=== PATIENT | male | born 1970 | race Caucasian/White ===

== ENCOUNTER 2018-10-02 18:31 | Emergency (ER) | payer OTHER, SELFPAY ==
[2018-10-02 18:32] VITALS: BP 140/71; PULSE 104; RESP 18; TEMP 36.2; O2SAT 97; BMI 31.8
[2018-10-02] MEDS: HYDROcodone Bitartrate/Apap 5/325 Tablet PO (19:00)
--- NOTE | 2018-10-02 19:12 | RAD_ITS ---
STUDY: X-RAY - LEFT ANKLE REASON FOR EXAM: Male, 48 years old. Fall. Pain. TECHNIQUE: 3 view(s) of the ankle. COMPARISON: None. FINDINGS: There is a minimally displaced oblique fracture of the distal fibula originating at the ankle mortise. There is slight widening of the medial tibiotalar articulation. Normal visualized talus and calcaneus. The visualized subtalar, talonavicular, calcaneocuboid and tarsal articulations are normal. There is diffuse soft tissue swelling. RAD/Ankle min 3 Views IMPRESSION: Fracture of distal fibula with soft tissue swelling as described. Electronically Signed: Colt Baugh MD at 19:23 EST , Service support ,
--- NOTE | 2018-10-02 19:44 | ED.VISSUMM ---
- ER Visit Summary Date of Service: 10/02/18 Chief Complaint: Left ankle pain History of Present Illness: The patient is a 48 M who twisted his left ankle yesterday evening on the stairs. He complains of pain to his lateral left ankle. No other significant injuries or complaints. No weakness or numbness. Physical Examination: Afebrile and vital signs unremarkable. He has tenderness and swelling to his left lateral ankle. Foot is nontender. Proximal leg is nontender. He is neurovascular intact distally. Skin is intact. Test Results: X-rays show a left distal fibula fracture. Mortise appears normal. Emergency Department Course and Treatment: Patient treated with [place] while awaiting x-ray results. He was placed in an Ortho-Glass splint. Referred to Dr. Napoles for follow up. His prescription report showed no prescriptions. He was treated with Percocet. Rest, ice, elevate. Crutches and nonweightbearing. Return for any new or worsening issues. Treatment Plan: As above Disposition: Discharged Impression: 1. Left distal fibula fracture This note was generated with [employer] dictation software. It may contain incorrect words, spelling, and punctuation that were not noted in review of the chart prior to signing ED Disposition - Plan for ED Patient: Chief Complaint: Lower Extremity Injury Referrals: Alex Hickey MD [Primary Care Provider] -
--- NOTE | 2018-10-02 19:46 | ED.DEP ---
ED Disposition - Plan for ED Patient: Chief Complaint: Lower Extremity Injury Instructions: ED Fx Ankle Lateral Malleolus Prescriptions: Oxycodone HCl/Acetaminophen [Percocet 5/325] 1 tab PO Q6H PRN PRN 3 Days #12 tab PRN Reason: Pain Referrals: Tayo Napoles DO [STAFF PHYSICIAN] -
[2018-10-02 20:21] VITALS: BP 138/74; PULSE 72; RESP 16; O2SAT 97
== END 2018-10-02 20:22 | disposition home or self-care (01) ==
LOC: ED 19:03
PROVIDERS: Emergency Provider Emergency Medicine; Family Provider Family Medicine; PCP Family Medicine
DX: S82.832A Other fracture of upper and lower end of left fibula, initial encounter for closed fracture (principal); W10.9XXA Fall (on) (from) unspecified stairs and steps, initial encounter; Y93.9 Activity, unspecified; I10 Essential (primary) hypertension; Z79.899 Other long term (current) drug therapy; Z72.0 Tobacco use
CPT/HCPCS: 29515; 73610; 99284

== ENCOUNTER 2018-10-21 12:51 | Day surgery (SDC) | payer OTHER, SELFPAY ==
--- NOTE | 2018-10-10 12:03 | RAD_ITS ---
STUDY: X-RAY CHEST REASON FOR EXAM: Male, 48 years old. Preop for knee surgery TECHNIQUE: PA and lateral views of the chest. COMPARISON: None. FINDINGS: The lungs are clear and expanded. There is no demonstrated pleural abnormality. Normal size heart. Normal mediastinum and marla. Normal visualized pulmonary arteries. Normal visualized aortic arch and descending thoracic aorta. Normal visualized thoracic spine. Normal visualized ribs, clavicles, and shoulders. There is no demonstrated abnormality of the visualized soft tissue structures of the upper abdomen. RAD/Chest PA and Lateral IMPRESSION: Normal x-ray examination of the chest. Electronically Signed: Bernardo King MD at 12:25 EST , Service support ,
--- NOTE | 2018-10-10 12:05 | EKG12_ITS ---
Test Reason : PRE-OP Blood Pressure : / mmHG Vent. Rate : 063 BPM Atrial Rate : 063 BPM P-R Int : 158 ms QRS Dur : 110 ms QT Int : 412 ms P-R-T Axes : 039 004 028 degrees QTc Int : 421 ms Normal sinus rhythm Normal ECG Confirmed by MIGUEL ANGEL CISNEROS MD ([id number]), editor continuity and script RICKI KEENAN ([id number] on 10/12/2018 11:29:01 AM Referred By: Lindsay Arauz Confirmed By:MIGUEL ANGEL CISNEROS MD
[2018-10-10 12:31] LABS: Hematocrit 47.8 % (40-54); Hemoglobin 15.4 g/dl (13.0-16.5); Mean Corp Hgb Conc 32.2 g/gl (32-36); Mean Corpuscular Hgb 29.1 pg (27.0-32.0); Mean Corpuscular Volume 90.4 fL (80-94); Mean Platelet Vol. 10.4 fl (6.2-12.0); Platelet Count 283 K/mm3 (150-450); RBC Distribution Width CV 13.7 % (11.6-14.6); RBC Distribution Width SD 45.5 fl (35.1-43.9); Red Blood Count 5.29 M/mm3 (4.6-6.2); White Blood Count 11.8 K/mm3 (4.4-11.0)
[2018-10-10 12:34] LABS: Scan Indicated on CBC? Y/N NO
[2018-10-10 13:04] LABS: Anion Gap 8 (5-15); BUN 20 mg/dL (7-18); BUN/Creat Ratio 22.3 RATIO (10-20); Calcium,Total 9.4 mg/dL (8.5-10.1); Chloride 102 mmol/L (98-107); EST Glomerular Filtration Rate 95 mL/min (>60); Est Glom Filt Rate - Afr Amer 115 mL/min (>60); Glucose 108 mg/dL (74-106); Potassium 4.6 mmol/L (3.5-5.1); Sodium Level 139 mmol/L (136-145)
[2018-10-21] VITALS (7 sets, daily range): BP systolic 94–124; BP diastolic 64–78; PULSE 60–94; RESP 16–18; TEMP 35.9–36.8; O2SAT 94–99; BMI 30.4
[2018-10-21] MEDS: Cefazolin 2 GM in 0.9% Normal Saline 100 ML IV (15:22)
--- NOTE | 2018-10-21 15:45 | RAD_ITS ---
STUDY: X-RAY - LEFT ANKLE REASON FOR EXAM: Male, 48 years old. ORIF left ankle fracture TECHNIQUE: 9 C-arm view(s) of the ankle. 124.7 seconds fluoroscopy time. COMPARISON: None. FINDINGS: These intraoperative images show placement of a compression plate and screws across a distal fibular fracture and 2 screws extend into the tibia. Correlate with procedure note. Electronically Signed: Emmanuel Pal MD at 23:52 EST , Service support , RAD/Ankle min 3 Views
--- NOTE | 2018-10-21 18:20 | OP.PN_ITS ---
Immediate Post-Op Note Date of Procedure: 10/21/18 Primary Surgeon/Physician: Lindsay Arauz DPM wad compressor operator adjuster: NOT,DEFINED Pre-Operative Diagnosis: L ankle fracture with syndesmotic instability Post-Operative Diagnosis: same Surgery/Procedure Performed:: ORIF L ankle fracture with syndesmotic fixation Description of Surgical Findings:: see dictation Estimated Blood Loss: minimal Specimen's removed: none Drains: none Type of Anesthesia:: Spinal/Supplemental - Admit VTE Documentation VTE Present on Admission: No VTE Mechan Device Prophylaxis: SCD's, Knee High VONDA Hose VTE Pharm Prophylaxis ordered?: Yes
--- NOTE | 2018-10-21 18:20 | PCM.DC.ORTHO ---
Discharge Activity: May Not Drive, May not drive while taking narcotic pain medications., May Not Shower, Use Walker, Use Crutches Ice area for (Minutes): 20 - behind left knee 20 minutes of each hour while awake Weight Bearing Status: No weight bearing Keep extremity elevated above heart level: Operative Extremity Call your doctor if your incision/area has: Sudden Increased Bleeding Call your doctor if you observe: Fever of 101 or Higher, Shortness of breath, Chest pain, Increased palpitations (irregular heartbeat), Calf discomfort, Uncontrolled pain Cleanse incision/area with: Keep Dressing Clean & Dry Allergies/Adverse Reactions: Allergies naproxen Adverse Reaction (Verified 10/11/18 08:20) Other HEART PALPITATIONS Medications to take at Discharge Hydrochlorothiazide [Hctz] 25 mg PO DAILY 10/02/18 Lisinopril [Zestril] 10 mg PO DAILY 10/02/18 Rosuvastatin Calcium 20 mg PO QHS 10/02/18 Oxycodone [Oxyir] 5 mg PO Q4H PRN PRN 7 Days #30 tab 10/21/18 The following prescriptions were given: Oxycodone [Oxyir] 5 mg PO Q4H PRN PRN 7 Days #30 tab PRN Reason: Pain Primary Care Physician: Alex Hickey MD [Primary Care Provider] - Test Results: Test results from this visit will be discussed in further detail at your follow-up appointment, if applicable. Please Follow Up With: Lindsay Arauz DPM - please f/u at your previsously scheduled post operative appointment Proposed Discharge Date: 10/21/18
--- NOTE | 2018-10-21 18:24 | DCINST_ITS ---
Discharge Activity: May Not Drive, May not drive while taking narcotic pain medications., May Not Shower, Use Walker, Use Crutches Ice area for (Minutes): 20 - behind left knee 20 minutes of each hour while awake Weight Bearing Status: No weight bearing Keep extremity elevated above heart level: Operative Extremity Call your doctor if your incision/area has: Sudden Increased Bleeding Call your doctor if you observe: Fever of 101 or Higher, Shortness of breath, Chest pain, Increased palpitations (irregular heartbeat), Calf discomfort, Uncontrolled pain Cleanse incision/area with: Keep Dressing Clean & Dry Allergies/Adverse Reactions: Allergies naproxen Adverse Reaction (Verified 10/11/18 08:20) Other HEART PALPITATIONS Medications to take at Discharge Hydrochlorothiazide [Hctz] 25 mg PO DAILY 10/02/18 Lisinopril [Zestril] 10 mg PO DAILY 10/02/18 Rosuvastatin Calcium 20 mg PO QHS 10/02/18 Oxycodone [Oxyir] 5 mg PO Q4H PRN PRN 7 Days #30 tab 10/21/18 The following prescriptions were given: Oxycodone [Oxyir] 5 mg PO Q4H PRN PRN 7 Days #30 tab PRN Reason: Pain Primary Care Physician: Alex Hickey MD [Primary Care Provider] - Test Results: Test results from this visit will be discussed in further detail at your follow- up appointment, if applicable. Please Follow Up With: Lindsay Arauz DPM - please f/u at your previsously scheduled post operative appointment Proposed Discharge Date: 10/21/18
--- NOTE | 2018-10-21 18:32 | RAD_ITS ---
STUDY: X-RAY - LEFT ANKLE REASON FOR EXAM: Male, 48 years old. Follow-up fracture. TECHNIQUE: 3 view(s) of the ankle. COMPARISON: 10/02/2018. FINDINGS: Compression plate and screws are seen along the distal fibula fixating a distal fibular fracture into near anatomic alignment and position. 2. Screws pass through the compression plate, fibula, and into the distal tibia. Normal ankle mortise, no widening. RAD/Ankle min 3 Views IMPRESSION: Satisfactory postop appearance of the ankle. Recommend continued follow-up. Electronically Signed: Emmanuel Pal MD at 19:33 EST , Service support ,
[2018-10-21] MEDS: oxyCODONE 5 MG Tablet PO (20:39)
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
== END 2018-10-21 21:03 | disposition home or self-care (01) ==
LOC: SDC 12:54 → AC 12:54
PROVIDERS: Family Provider Family Medicine; PCP Family Medicine; Referring Provider Podiatrist Foot & Ankle Surgery; Visit Provider Podiatrist Foot & Ankle Surgery
PROC: (CPT 27792; principal; 2018-10-21 14:05)
DX: S82.62XA Displaced fracture of lateral malleolus of left fibula, initial encounter for closed fracture (principal); W10.9XXA Fall (on) (from) unspecified stairs and steps, initial encounter; Y93.01 Activity, walking, marching and hiking; Y92.009 Unspecified place in unspecified non-institutional (private) residence as the place of occurrence of the external cause; I10 Essential (primary) hypertension; E78.00 Pure hypercholesterolemia, unspecified; F17.210 Nicotine dependence, cigarettes, uncomplicated; Z79.899 Other long term (current) drug therapy
CPT/HCPCS: 27792; 64445; 36415; 71046; 73610; 76000; 80048; 85027; 93005; C1713; J7120; J2405

== ENCOUNTER 2019-05-08 15:46 | Emergency (ER) | payer OTHER, SELFPAY ==
[2018-10-21 13:24] VITALS: BMI 30.4
--- NOTE | 2019-05-08 15:59 | EKG12_ITS ---
Test Reason : CP Blood Pressure : / mmHG Vent. Rate : 082 BPM Atrial Rate : 082 BPM P-R Int : 160 ms QRS Dur : 090 ms QT Int : 380 ms P-R-T Axes : 053 007 056 degrees QTc Int : 443 ms Normal sinus rhythm Normal ECG Confirmed by RIAN CASTREJON, YUSUF ([id number]), editor & co founder CHAS ZUÑIGA ([id number]) on 05/10/2019 11:31:13 AM Referred By: [id number] Confirmed By:YUSUF MODI MD
--- NOTE | 2019-05-08 15:59 | RAD_ITS ---
STUDY: X-RAY CHEST REASON FOR EXAM: Male, 48 years old. Chest pain. TECHNIQUE: Single frontal view of the chest. COMPARISON: October 10, 2018 FINDINGS: There is stable mild hyperexpansion. There is no demonstrated pleural abnormality. Normal size heart. Normal mediastinum and marla. Normal visualized pulmonary arteries. Normal visualized aortic arch and descending thoracic aorta. Normal visualized thoracic spine. Normal visualized ribs, clavicles, and shoulders. There is no demonstrated abnormality of the visualized soft tissue structures of the upper abdomen. RAD/Chest 1 View (Portable) IMPRESSION: Stable mild hyperexpansion. No acute finding. Electronically Signed: Colt Baugh MD at 16:28 EDT , Service support ,
[2019-05-08 16:00] VITALS: BP 128/84; PULSE 81; PULSE 88; RESP 17; TEMP 37.2; O2SAT 93; O2SAT 94; BMI 30.1
[2019-05-08 16:15] LABS: Absolute Lymphocyte Count 2.25 X10^3/ul (0.83-4.51); Absolute Neutrophil Count 9.2 X10^3/uL (2.0-7.7); Basophil# 0.03 X10^3/uL; Basophil% 0.2 % (0-1); Eosinophil# 0.06 X10^3/uL; Eosinophils% 0.5 % (0-5); Hematocrit 45.8 % (40-54); Hemoglobin 15.2 g/dl (13.0-16.5); Lymphocyte # 2.25 X10^3/ul (4.0); Lymphocyte % 17.9 % (19-41); Mean Corp Hgb Conc 33.2 g/gl (32-36); Mean Corpuscular Hgb 28.8 pg (27.0-32.0); Mean Corpuscular Volume 86.9 fL (80-94); Mean Platelet Vol. 10.5 fl (6.2-12.0); Neutrophil # 9.19 X10^3/uL (2.7-7.7); Neutrophil % 73.2 % (47-70); Platelet Count 215 K/mm3 (150-450); RBC Distribution Width CV 13.8 % (11.6-14.6); RBC Distribution Width SD 43.7 fl (35.1-43.9); Red Blood Count 5.27 M/mm3 (4.6-6.2); White Blood Count 12.6 K/mm3 (4.4-11.0)
[2019-05-08 16:18] LABS: POSITIVE COUNT NO; POSITIVE DIFFERENTIAL NO; POSITIVE MORPHOLOGY NO
[2019-05-08 16:32] LABS: Anion Gap 6 (5-15); BUN 17 mg/dL (7-18); BUN/Creat Ratio 20.3 RATIO (10-20); Calcium,Total 9.2 mg/dL (8.5-10.1); Chloride 105 mmol/L (98-107); Creatinine, Serum 0.84 mg/dL (0.70-1.30); EST Glomerular Filtration Rate 103 mL/min (>60); Est Glom Filt Rate - Afr Amer 125 mL/min (>60); Estimated Creatinine Clearance 108.63 ml/min; Glucose 93 mg/dL (74-106); Potassium 3.6 mmol/L (3.5-5.1); Sodium Level 140 mmol/L (136-145)
[2019-05-08 16:48] VITALS: O2SAT 95
--- NOTE | 2019-05-08 16:48 | ED.DCSUM_ITS ---
- ER Visit Summary Date of Service: 05/08/19 Chief Complaint: [Hospital] History of Present Illness: The patient is a 48 M [the emergency department chest pain that started around noon. Patient was at rest when he noticed bleeding pinching needlelike sensation in his left chest that lasted a second or 2 and then resolved. Patient has had intermittent such episodes since that time. He denies any shortness of breath or diaphoresis. He has not had any chest pain or shortness of breath with activity or with exertion. Denies any radiation of the pain. Has had no nausea or vomiting. Patient has no heart history. No family history of heart disease. He does have a history of hypertension and cholesterol. Denies recent travel or surgery. Initially he only felt the pain with certain movement of his arm. Physical Examination: [HEENT-PERRLA, EOMI. Cranial nerves II through XII grossly intact. TMs clear. Mucous membranes moist. No adenopathy. Cardiovascular-regular rate and rhythm without murmur or ectopy Lungs-clear to auscultation, chest wall stable without crepitus or subcu emphysema Abdomen-normoactive bowel sounds, soft, nontender, no rebound or rigidity, no peritoneal signs. Extremities-intact ?4, normal range of motion, normal pulses, atraumatic] Test Results: [EKG obtained arrival shows sinus rhythm with a ventricular rate of 82 bpm with no acute I segment changes. CBC with it was normal. Chemistries normal. Troponin less than 0.015. Chest x-ray was normal.] Emergency Department Course and Treatment: [Patient had work-up ordered via protocol by nursing staff as it was a busy evening in the emergency department. I discussed results with patient and his ELIAS risk score is 0. His chest discomfort is extremely atypical and I do not feel it is cardiac in nature.] Treatment Plan: [Follow-up with primary care physician in 3 to 5 days.] Disposition: [Discharged home in stable condition. Patient advised to return if persistent chest pain, shortness of breath, exertional dyspnea or chest pain, or conditions worsen anyway.] Impression: [Chest pain-atypical] This note was generated with [employer] software. It may contain incorrect words, spelling, and punctuation that were not noted in review of the chart prior to signing ED Disposition - Plan for ED Patient: Referrals: Alex Hickey MD [Primary Care Provider] -
--- NOTE | 2019-05-08 16:48 | ED.DEP ---
ED Disposition - Plan for ED Patient: Instructions: ED Chest Pain Atypical Unkn Cause Referrals: Alex Hickey MD [Primary Care Provider] - 3-5 Days
[2019-05-08 16:55] VITALS: BP 125/75; PULSE 71; RESP 18; O2SAT 97
== END 2019-05-08 16:56 | disposition home or self-care (01) ==
LOC: ED 16:48
PROVIDERS: Emergency Provider Emergency Medicine; Family Provider Family Medicine; PCP Family Medicine
DX: R07.89 Other chest pain (principal); I10 Essential (primary) hypertension; Z72.0 Tobacco use
CPT/HCPCS: 71045; 80048; 84484; 85025; 93005; 99284; A4216